=== PATIENT | male | born 1955 | race African-American/Black ===

== ENCOUNTER 2020-04-22 10:04 | Inpatient (IN) ==
[2020-04-22] MEDS ORDERED: SODIUM CHLORIDE 0.9% 1,000 ML IV STA ×2 (10:34→12:49)
[2020-04-22] MEDS ORDERED: ONDANSETRON 4 MG/2 ML VIAL IV STA (10:34)
[2020-04-22] MEDS ORDERED: HYDROmorphone 2 MG/1 ML VIAL IV STA (10:40)
[2020-04-22 10:57] LABS: Basophils % 0.1 % (0.0-0.8); Hematocrit 28.2 VOL% (42.0-52.0); Hemoglobin 9.7 GM/DL (14.0-18.0); Immature Granulocytes Absolute 0.07 #; Lymphocytes # 0.6 10*3/uL (1.4-4.0); Lymphocytes % 8.4 % (21.2-54.2); Mean Corpuscular HGB Conc 34.4 GM/DL (32-36); Mean Corpuscular Volume 98.9 FL (87-102); Mean Platelet Volume 10.9 FL (9.6-12.0); Monocytes % 9.5 % (1.7-12.7); Platelet Count 102 T/CUMM (130-400); Red Blood Count 2.85 MC/CUMM (3.8-5.5); Red Cell Distribution Width 12.6 % (9.3-17.3); White Blood Count 7.2 T/CUMM (4-12)
[2020-04-22 11:14] LABS: Platelet Estimate Adequate
[2020-04-22 11:15] LABS: Anisocytosis Slight; Macrocytosis Slight
[2020-04-22 11:30] LABS: Albumin 2.3 G/DL (3.4-5.0); Bilirubin,Total 0.6 MG/DL (0.2-1.0); Calcium 6.5 MG/DL (8.5-10.1); Osmolality,Calculated 282.5 MOS/KG (273-304); Total Protein 6.3 G/DL (6.4-8.3)
[2020-04-22] MEDS ORDERED: POTASSIUM CHLORIDE 20 MEQ TABLET PO STA (12:49)
[2020-04-22] MEDS ORDERED: NICOTINE 21 MG/24 HR PATCH TRANSDERM PRN (13:32)
[2020-04-22] MEDS ORDERED: ONDANSETRON 4 MG/2 ML VIAL IV PRN (13:32)
[2020-04-22] MEDS ORDERED: GLUCAGON 1 MG VIAL IM PRN (13:32)
[2020-04-22] MEDS ORDERED: hydrALAZINE 20 MG/1 ML VIAL IV PRN (13:32)
[2020-04-22] MEDS ORDERED: DEXTROSE 50% 25 GM/50 ML VIAL IV PRN (13:32)
[2020-04-22] MEDS ORDERED: LORazepam 2 MG/1 ML VIAL ONE (14:25)
[2020-04-22] MEDS ORDERED: LORazepam 2 MG/1 ML VIAL IV STA (14:27)
[2020-04-22] MEDS: PIPERACILLIN/TAZOBACTAM 3,375 MG in SODIUM CHLORIDE 0.9% 100 ML IV SCH ×2 (14:50→22:39)
[2020-04-22] MEDS ORDERED: POTASSIUM CHLORIDE RIDER 10 MEQ in PREMIX 1 EACH IV PRN (14:50)
[2020-04-22] MEDS ORDERED: MAGNESIUM SULF RIDER 4 GM in PREMIX 1 EACH IV PRN (14:50)
[2020-04-22] MEDS ORDERED: MAGNESIUM SULF RIDER 2 GM in PREMIX 1 EACH IV PRN (14:50)
[2020-04-22] MEDS: ENOXAPARIN 40 MG/0.4 ML SYRINGE SUBCUT SCH (14:51)
[2020-04-22] MEDS ORDERED: HYDROmorphone 2 MG/1 ML VIAL IV PRN (15:02)
[2020-04-22 15:27] LABS: Cancer Antigen 19-9 2.4 U/ML (0-37); Carcinoembryonic Antigen 2.2 NG/ML (0.0-5.0)
[2020-04-22] MEDS: DEXTROSE 5% LACTATED RINGERS 1,000 ML IV SCH (16:34)
[2020-04-22] MEDS: THIAMINE 200 MG/2 ML VIAL IV SCH (16:34)
[2020-04-22] MEDS: FOLIC ACID 1 MG TABLET PO SCH (16:34)
[2020-04-23] MEDS: DEXTROSE 5% LACTATED RINGERS 1,000 ML IV SCH ×2 (03:24)
[2020-04-23 05:45] LABS: Basophils % 0.1 % (0.0-0.8); Hematocrit 30.5 VOL% (42.0-52.0); Hemoglobin 10.3 GM/DL (14.0-18.0); Immature Granulocytes % 0.7 %; Immature Granulocytes Absolute 0.05 #; Lymphocytes # 0.5 10*3/uL (1.4-4.0); Lymphocytes % 7.5 % (21.2-54.2); Mean Corpuscular HGB Conc 33.8 GM/DL (32-36); Mean Corpuscular Volume 98.1 FL (87-102); Monocytes % 11.2 % (1.7-12.7); Neutrophils % 80.5 % (38.7-73.9); Platelet Count 111 T/CUMM (130-400); Red Blood Count 3.11 MC/CUMM (3.8-5.5); Red Cell Distribution Width 12.9 % (9.3-17.3); White Blood Count 6.7 T/CUMM (4-12)
[2020-04-23 06:04] LABS: Hypochromasia 1+; Microcytosis 1+; Platelet Estimate Decreased
[2020-04-23] MEDS: PIPERACILLIN/TAZOBACTAM 3,375 MG in SODIUM CHLORIDE 0.9% 100 ML IV SCH ×3 (06:13→21:13)
[2020-04-23 08:39] LABS: Albumin 2.5 G/DL (3.4-5.0); Bilirubin,Total 1.2 MG/DL (0.2-1.0); Osmolality,Calculated 281.7 MOS/KG (273-304); Total Protein 7.2 G/DL (6.4-8.3)
[2020-04-23 08:40] LABS: Risk Ratio 2.28; Thyroid Stimulating Hormone 0.662 uIU/ml (0.358-3.74); VLDL CHOLESTEROL 22.2 MG/DL
[2020-04-23] MEDS: FOLIC ACID 1 MG TABLET PO SCH (09:32)
[2020-04-23] MEDS: THIAMINE 200 MG/2 ML VIAL IV SCH (09:32)
[2020-04-23 09:51] LABS: Bilirubin,Urine Negative (Negative); Blood, Urine Moderate mg/dL (Negative); Glucose,Urine (UA) 50 mg/dL (Negative); Ketones,Urine Negative (Negative); Nitrite,Urine Negative (Negative); Protein,Urine 30 MG/DL; Squamous Epithelial Cell,Urine Occasional /HPF (0-10); Urine Appearance CLEAR (Clear); Urine Color Yellow (Yellow); Urine Specific Gravity 1.016 (1.001-1.035); WBC,Urine <1 /HPF (0-6)
[2020-04-23 10:21] LABS: Barbiturates Screen,Urine Negative (Negative); Benzodiazepines Screen,Urine Negative (Negative); Cannabinoid Screen,Urine Positive (Negative); Opiate Screen,Urine Negative (Negative); Phencyclidine Screen,Urine Negative (Negative)
[2020-04-23] MEDS: SODIUM CHLORIDE 0.9% 1,000 ML IV SCH ×3 (11:09→19:39)
[2020-04-23] MEDS: ENOXAPARIN 40 MG/0.4 ML SYRINGE SUBCUT SCH (14:49)
[2020-04-23] MEDS: LORazepam 1 MG TABLET PO SCH ×3 (14:49→21:13)
[2020-04-23] MEDS: METOPROLOL TARTRATE 5 MG/5 ML VIAL IV PRN (17:08)
[2020-04-23] MEDS: VANCOMYCIN INJ 750 MG in SODIUM CHLORIDE 0.9% 250 ML IV SCH (18:02)
[2020-04-24] MEDS: LORazepam 1 MG TABLET PO SCH ×5 (02:14→20:24)
[2020-04-24] MEDS: METOPROLOL TARTRATE 5 MG/5 ML VIAL IV PRN (03:58)
[2020-04-24] MEDS: VANCOMYCIN INJ 750 MG in SODIUM CHLORIDE 0.9% 250 ML IV SCH ×2 (05:28→18:30)
[2020-04-24 05:53] LABS: Basophils % 0.4 % (0.0-0.8); Eosinophils % 0.7 % (0.00-10.9); Hematocrit 29.5 VOL% (42.0-52.0); Hemoglobin 10.3 GM/DL (14.0-18.0); Immature Granulocytes % 0.6 %; Immature Granulocytes Absolute 0.03 #; Lymphocytes # 0.5 10*3/uL (1.4-4.0); Lymphocytes % 9.6 % (21.2-54.2); Mean Corpuscular HGB Conc 34.9 GM/DL (32-36); Mean Platelet Volume 10.8 FL (9.6-12.0); Monocytes % 16.9 % (1.7-12.7); Neutrophils % 71.8 % (38.7-73.9); Platelet Count 134 T/CUMM (130-400); Red Blood Count 3.01 MC/CUMM (3.8-5.5); Red Cell Distribution Width 12.6 % (9.3-17.3); White Blood Count 5.4 T/CUMM (4-12)
[2020-04-24] MEDS: PIPERACILLIN/TAZOBACTAM 3,375 MG in SODIUM CHLORIDE 0.9% 100 ML IV SCH ×3 (06:15→22:02)
[2020-04-24] MEDS: SODIUM CHLORIDE 0.9% 1,000 ML IV SCH ×4 (06:16→20:24)
[2020-04-24 06:17] LABS: Albumin 2.5 G/DL (3.4-5.0); Bilirubin,Total 1.2 MG/DL (0.2-1.0); Calcium 9.4 MG/DL (8.5-10.1); Osmolality,Calculated 273.5 MOS/KG (273-304); Total Protein 7.4 G/DL (6.4-8.3)
[2020-04-24 06:47] LABS: Band Neutrophils 1 % (0-10); Eosinophils 2 % (0-10); Lymphocytes 13 % (20-55); Segmented Neutrophils 69 % (50-85); Total Cells Counted 100
[2020-04-24 06:48] LABS: Anisocytosis 1+; Macrocytosis 1+; Platelet Estimate Adequate
[2020-04-24] MEDS: FOLIC ACID 1 MG TABLET PO SCH (09:06)
[2020-04-24] MEDS: POTASSIUM CHLORIDE 20 MEQ TABLET PO PRN ×5 (09:06→23:34)
[2020-04-24] MEDS: THIAMINE 200 MG/2 ML VIAL IV SCH (09:07)
[2020-04-24] MEDS: ENOXAPARIN 40 MG/0.4 ML SYRINGE SUBCUT SCH (14:04)
[2020-04-25] MEDS: SODIUM CHLORIDE 0.9% 1,000 ML IV SCH ×6 (01:07→22:44)
[2020-04-25] MEDS: POTASSIUM CHLORIDE 20 MEQ TABLET PO PRN ×3 (01:28→05:50)
[2020-04-25] MEDS: LORazepam 1 MG TABLET PO SCH ×4 (01:28→21:30)
[2020-04-25] MEDS: METOPROLOL TARTRATE 5 MG/5 ML VIAL IV PRN ×2 (01:29→16:47)
[2020-04-25 05:14] LABS: Basophils % 0.7 % (0.0-0.8); Eosinophils # 0.1 10*3/uL (0.0-0.87); Hematocrit 27.7 VOL% (42.0-52.0); Hemoglobin 9.4 GM/DL (14.0-18.0); Immature Granulocytes Absolute 0.04 #; Lymphocytes # 0.6 10*3/uL (1.4-4.0); Lymphocytes % 13.6 % (21.2-54.2); Mean Corpuscular HGB Conc 33.9 GM/DL (32-36); Mean Corpuscular Volume 98.9 FL (87-102); Mean Platelet Volume 10.9 FL (9.6-12.0); Monocytes % 20.6 % (1.7-12.7); Neutrophils % 62.1 % (38.7-73.9); Platelet Count 156 T/CUMM (130-400); Red Cell Distribution Width 12.2 % (9.3-17.3)
[2020-04-25 05:40] LABS: Albumin 2.4 G/DL (3.4-5.0); Bilirubin,Total 1.2 MG/DL (0.2-1.0); Calcium 8.7 MG/DL (8.5-10.1); Osmolality,Calculated 274.4 MOS/KG (273-304); Total Protein 6.9 G/DL (6.4-8.3)
[2020-04-25] MEDS: PIPERACILLIN/TAZOBACTAM 3,375 MG in SODIUM CHLORIDE 0.9% 100 ML IV SCH (05:49)
[2020-04-25 06:26] LABS: Anisocytosis 1+; Band Neutrophils 7 % (0-10); Eosinophils 2 % (0-10); Lymphocytes 13 % (20-55); Macrocytosis Slight; Platelet Estimate Normal; Segmented Neutrophils 57 % (50-85); Total Cells Counted 100
[2020-04-25] MEDS: FOLIC ACID 1 MG TABLET PO SCH (08:49)
[2020-04-25] MEDS: THIAMINE 200 MG/2 ML VIAL IV SCH (08:49)
[2020-04-25] MEDS: VANCOMYCIN INJ 750 MG in SODIUM CHLORIDE 0.9% 250 ML IV SCH (08:50)
[2020-04-25] MEDS: DEXTROSE 5% LACTATED RINGERS 1,000 ML IV SCH (10:05)
[2020-04-25] MEDS: ENOXAPARIN 40 MG/0.4 ML SYRINGE SUBCUT SCH (14:19)
[2020-04-26] MEDS: SODIUM CHLORIDE 0.9% 1,000 ML IV SCH ×4 (02:31→18:37)
[2020-04-26] MEDS: LORazepam 1 MG TABLET PO SCH (06:19)
[2020-04-26] MEDS: FOLIC ACID 1 MG TABLET PO SCH (08:31)
[2020-04-26] MEDS: THIAMINE 200 MG/2 ML VIAL IV SCH (08:32)
[2020-04-26] MEDS ORDERED: MECLIZINE 12.5 MG TABLET PO PRN (09:37)
[2020-04-26] MEDS: amLODIPine 10 MG TABLET PO SCH (10:01)
[2020-04-26] MEDS: carvediloL 6.25 MG TABLET PO SCH ×2 (10:01→22:30)
[2020-04-26] MEDS: ESCITALOPRAM 10 MG TABLET PO SCH (10:01)
[2020-04-26] MEDS: PANTOPRAZOLE 40 MG TABLET PO SCH (10:01)
[2020-04-26] MEDS: ENOXAPARIN 40 MG/0.4 ML SYRINGE SUBCUT SCH (14:23)
[2020-04-26] MEDS: GABAPENTIN 300 MG CAPSULE PO SCH ×2 (15:25→22:30)
[2020-04-26] MEDS: SIMVASTATIN 20 MG TABLET PO SCH (22:30)
[2020-04-27] MEDS: SODIUM CHLORIDE 0.9% 1,000 ML IV SCH ×2 (07:11→16:40)
[2020-04-27] MEDS: ESCITALOPRAM 10 MG TABLET PO SCH (09:08)
[2020-04-27] MEDS: PANTOPRAZOLE 40 MG TABLET PO SCH (09:08)
[2020-04-27] MEDS: carvediloL 6.25 MG TABLET PO SCH ×2 (09:08→21:05)
[2020-04-27] MEDS: amLODIPine 10 MG TABLET PO SCH (09:08)
[2020-04-27] MEDS: FOLIC ACID 1 MG TABLET PO SCH (09:08)
[2020-04-27] MEDS: THIAMINE 100 MG TABLET PO SCH (09:08)
[2020-04-27] MEDS: GABAPENTIN 300 MG CAPSULE PO SCH ×3 (10:40→21:05)
[2020-04-27] MEDS: ENOXAPARIN 40 MG/0.4 ML SYRINGE SUBCUT SCH (14:58)
[2020-04-27] MEDS: SIMVASTATIN 20 MG TABLET PO SCH (21:05)
[2020-04-28] MEDS: SODIUM CHLORIDE 0.9% 1,000 ML IV SCH (05:49)
[2020-04-28] MEDS: GABAPENTIN 300 MG CAPSULE PO SCH (09:15)
[2020-04-28] MEDS: FOLIC ACID 1 MG TABLET PO SCH (09:15)
[2020-04-28] MEDS: ESCITALOPRAM 10 MG TABLET PO SCH (09:16)
[2020-04-28] MEDS: THIAMINE 100 MG TABLET PO SCH (09:16)
[2020-04-28] MEDS: amLODIPine 10 MG TABLET PO SCH (09:17)
[2020-04-28] MEDS: carvediloL 6.25 MG TABLET PO SCH (09:18)
[2020-04-28] MEDS: PANTOPRAZOLE 40 MG TABLET PO SCH (09:18)
[2020-04-28 12:05] VITALS: BP 153/94
[2020-04-28] MEDS: ENOXAPARIN 40 MG/0.4 ML SYRINGE SUBCUT SCH (14:42)
== END 2020-04-28 16:01 | disposition home or self-care (01) | DRG 440 ==
LOC: N.ED 10:04 → N.EDINP 13:32 → SUATTDRO 13:32 → N.3E 14:38
PROVIDERS: ADMIT Internal Medicine; ATTEND Internal Medicine Geriatric Medicine